=== PATIENT | female | born 1960 | race Caucasian/White ===

== ENCOUNTER 2016-07-11 09:09 | Day surgery (SDC) | payer BC ==
[~2016-07-11] VITALS: Ht 167.6 cm; Wt 67.1 kg
[2016-07-11] VITALS (16 sets, daily range): BP systolic 117–139; BP diastolic 65–84; PULSE 56–88; RESP 15–19; Ht 167.6 cm; Wt 67.1 kg
[~2016-07-11 09:09] MED LIST: BUPIVACAINE 0.5% (SDV) 30 ML, morphine SULFATE (PF) 8 MG, EPINEPHrine 0.3 MG, KETOROLAC... IRR SCH; CEFAZOLIN 2 GM/50 ML (PMX) 50 ML IVPB ONE; DESFLURANE 15 MIN ONE; DEXAMETHASONE 1 MG TAB PO ONE; GABAPENTIN 300 MG CAP PO ONE; GLYCOPYRROLATE 0.4 MG INJ ONE; NEOSTIGMINE 3 MG/3 ML SYRINGE ONE; TRANEXAMIC ACID 1,000 MG in SOD CHLORIDE 0.9% 100 ML IVPB ONE; traMADol 50 MG TAB PO ONE
[2016-07-11] MEDS ORDERED: SYN1 PO (09:45)
[2016-07-11] MEDS ORDERED: LIOT5TAB3 PO (09:47)
[2016-07-11] MEDS ORDERED: METF1000 PO (09:48)
[2016-07-11] MEDS ORDERED: [UNRECOGNIZED DRUG - CODE] PO (09:48)
[2016-07-11] MEDS ORDERED: NAFT45CR TP (09:49)
[2016-07-11] MEDS ORDERED: SUMA50TA11 PO (09:50)
[2016-07-11] MEDS ORDERED: MULTI PO (09:51)
[2016-07-11] MEDS ORDERED: ASCO500C7 PO (09:51)
[2016-07-11] MEDS ORDERED: CALC600T11 PO (09:52)
[2016-07-11] MEDS ORDERED: ZINC220C5 PO (09:53)
[2016-07-11] MEDS ORDERED: VITA150T PO (09:53)
[2016-07-11] MEDS ORDERED: DICL50TA11 PO (09:54)
[2016-07-11] MEDS ORDERED: CA CHLORIDE 10% 10 ML SYRINGE ONE (11:59)
[2016-07-11] MEDS ORDERED: THROMBIN 5000 UNIT VIAL ONE (12:00)
[2016-07-11] MEDS ORDERED: LACTATED RINGER'S 1,000 ML IV* SCH (12:00)
[2016-07-11] MEDS ORDERED: POLYMYXIN/BACITRACIN 1L IRRIG ONE (12:00)
--- NOTE | 2016-07-11 12:00 | HPN ---
Date/Time of Note Date/Time of Note DATE: 07/11/16 TIME: 11:59 Interval H&P Admission Note Pt. seen H&P reviewed: No system changes VIK HANSON MD Jul 11, 2016 11:59
[2016-07-11] MEDS ORDERED: FENTAnyl 50 MCG/ML VIAL ONE (12:19)
[2016-07-11] MEDS ORDERED: DEXAMETHASONE 4 MG/ML 1 ML INJ ONE (12:47)
[2016-07-11] MEDS ORDERED: LIDOCAINE 2% (SDV) 5 ML INJ ONE (12:56)
[2016-07-11] MEDS ORDERED: ROCURONIUM 50 MG INJ ONE (12:56)
[2016-07-11] MEDS ORDERED: PROPOFOL 20 ML ONE (12:56)
[2016-07-11] MEDS ORDERED: CEFAZOLIN 1 GM INJ ONE (12:56)
[2016-07-11] MEDS ORDERED: SUCCINYLCHOLINE CHLORIDE 100 MG/5 ML SYG IV ONE (12:56)
[2016-07-11] MEDS ORDERED: HYDROmorphONE (0.2 MG/ML) 10ML SYG IV PRN ×3 (13:00)
[2016-07-11] MEDS ORDERED: FENTAnyl 50 MCG/ML VIAL IV PRN (13:00)
[2016-07-11] MEDS ORDERED: METOCLOPRAMIDE 10 MG INJ IV PRN (13:00)
[2016-07-11] MEDS ORDERED: MEPERIDINE 25 MG INJ IV PRN (13:00)
[2016-07-11] MEDS ORDERED: ONDANSETRON 4 MG INJ IV PRN (13:00)
[2016-07-11] MEDS ORDERED: DIPHENHYDRAMINE 50 MG INJ IV PRN (13:00)
--- NOTE | 2016-07-11 14:07 | PDOCDIS ---
Discharge Instructions DIAGNOSIS Discharge Diagnosis: Ischiofemoral impingement CONDITION Patient Condition: Good HOME CARE INSTRUCTIONS: Diet Instructions: Regular ACTIVITY: Activity Restrictions: Slowly Increase Activity Bathing Restrictions: Shower FOLLOW UP/APPOINTMENTS Appointments Friday, 07/15 SCHOOL/WORK RELEASE May return to School/Work with: With Restrictions School/Work Release Comment: Foot flat weight bearing for four weeks VIK HANSON MD Jul 11, 2016 14:07
--- NOTE | 2016-07-11 14:33 | OPR ---
DATE OF OPERATION: 07/11/2016 PREOPERATIVE DIAGNOSIS: Left ischiofemoral impingement. POSTOPERATIVE DIAGNOSES: 1. Left partial hamstring tear. 2. Left chronic ischial bursitis. 3. Left chronic sciatica nerve entrapment. PROCEDURE PERFORMED: 1. Left open hamstring tendon repair. 2. Left open ischial bursectomy. 3. Left open sciatic neurolysis. SURGEON: Vik Silverman MD SHEEP BONER: Mumtaz Schulz MD Continuous Miner Operator surgeon Mumtaz Schulz MD was asked to be present at my request as a result of the complexity associated with the procedure, including positioning of the extremity, manipulation and protection of the neural structures which are clearly within the surgical field. In my opinion, the assistance offered by a surgical instrument maker is insufficient, and Dr. Schulz should be compensated for his time. PROCEDURE IN DETAIL: Following administration of general endotracheal anesthesia, the patient was placed in the prone position and all prominences were padded properly. The posterior aspect of the left hip was then identified. The area was then locally infiltrated with long-acting anesthetic. Sterile prep and drape was then undertaken. A transverse incision was then made at the crease of the buttocks. The subgluteal space was then exposed with significant scarring noted. A very thick sheath was noted along the sciatic nerve. The sheath was then incised and a sciatic neurolysis was then undertaken from proximal to distal, clearly moving it from within the ischiofemoral space. Palpation of the area with rotation of the hip revealed the evident impingement which was occurring where this nerve was being trapped between the lesser trochanter, which was significantly prominent, and the ischial tuberosity. Once the neurolysis was completed. The nerve was thoroughly protected throughout the case. The attention was then directed to the palpable partial hamstring tendon tear. The ischium was then incised. The remaining fibrinous and degenerative tissue was then excised of the hamstring. A significant bursal fluid was seen to emanate from the area. A complete bursectomy of the ischium was then completed. There was very large and thickened bursal reactive tissue. Once the bursectomy was completed, osteotome was then used to remove approximately 4 to 5 mm of the lateral aspect of the ischium. Two 5.5 mm triple -loaded anchors were then inserted with sutures into the lateral ischium. The sutures were then used to pass through the hamstring tendon tear. The sutures were then tied in a sliding locking fashion and a watertight closure of the hamstring sheath was completed. The area of the lesser trochanter was then identified. The sciatic nerve was retracted in a more medial direction and the lesser trochanter was then identified. The posterior aspect of the lesser was noted and as mentioned was very markedly prominent. The psoas tendon was partially removed from around the bony prominence and using careful osteotomes and rongeurs, the majority of the prominent lesser trochanter was then removed and its portion of the psoas tendon was seen to be partially torn. A good decompression of the area was confirmed with digital palpation with hip rotation. The joint was thoroughly irrigated, closed using 0 Vicryl for the deep layer, 2- 0 and 4-0 Monocryl suture followed by a Prineo dressing for skin closure. Watertight closure was obtained. The patient was then placed in a supine position, extubated and transported to recovery in stable condition, tolerating the procedure well. I examined her in the recovery room and her neurological status was intact with normal motor and sensation of her sciatic nerve distrubution. Dictated By: VIK RODRIGUEZ/THIAGO Conf#: [id number] DID#: [id number] SACHIN
--- NOTE | 2016-07-12 18:47 | RADRPT ---
PROCEDURE: XR Chest. CLINICAL INDICATION: Chest pain, preop TECHNIQUE: Single frontal view of the chest was obtained COMPARISON: None FINDINGS: The heart and mediastinum are within normal limits. The lungs are clear. There is no pleural effusion or pneumothorax. IMPRESSION: No definite abnormalities are identified. RPTAT:AAJJ Scott Leon Physician Date Time Electronically viewed and signed by Scott Leon Physician on 07/11/2016 10:22 /
== END 2016-07-11 19:08 | disposition home or self-care (01) ==
LOC: SDS 09:09
PROVIDERS: ATTEND Orthopaedic Surgery
DX: M70.72 Other bursitis of hip, left hip (principal); M54.32 Sciatica, left side; S76.012D Strain of muscle, fascia and tendon of left hip, subsequent encounter; X58.XXXD Exposure to other specified factors, subsequent encounter
CPT/HCPCS: 27060; 27385; 64712; 71010; 86999; J0171; J0330; J0690; J0735; J1100; J1170; J1885; J2274; J2405; J2710; J3010; J3370

== ENCOUNTER 2016-11-21 08:44 | Observation (INO) | payer BC ==
[~2016-11-21] VITALS: Ht 165.1 cm; Wt 69.0 kg
[2016-11-21] VITALS (22 sets, daily range): BP systolic 101–145; BP diastolic 53–81; PULSE 62–80; RESP 10–72; Ht 165.1 cm; Wt 69.0 kg
[~2016-11-21 08:44] MED LIST changes: +ASCO500C7 PO; -BUPIVACAINE 0.5% (SDV) 30 ML, morphine SULFATE (PF) 8 MG, EPINEPHrine 0.3 MG, KETOROLAC... IRR SCH; +CALC600T11 PO; -CEFAZOLIN 2 GM/50 ML (PMX) 50 ML IVPB ONE; -DESFLURANE 15 MIN ONE; -DEXAMETHASONE 1 MG TAB PO ONE; +DICL50TA11 PO; -GABAPENTIN 300 MG CAP PO ONE; -GLYCOPYRROLATE 0.4 MG INJ ONE; +LIOT5TAB3 PO; +METF1000 PO; +MULTI PO; +NAFT45CR TP; -NEOSTIGMINE 3 MG/3 ML SYRINGE ONE; +SEVOFLURANE 15 MIN ONE; +SUMA50TA11 PO; +SYN1 PO; -TRANEXAMIC ACID 1,000 MG in SOD CHLORIDE 0.9% 100 ML IVPB ONE; +VITA150T PO; +ZINC220C5 PO; +[UNRECOGNIZED DRUG - CODE] PO; -traMADol 50 MG TAB PO ONE
--- NOTE | 2016-11-21 08:51 | HPN ---
Date/Time of Note Date/Time of Note DATE: 11/21/16 TIME: 08:51 Interval H&P Admission Note Pt. seen H&P reviewed: No system changes VIK HANSON MD Nov 21, 2016 08:51
[2016-11-21] MEDS ORDERED: LACTATED RINGER'S 1,000 ML IV* SCH (10:30)
[2016-11-21] MEDS ORDERED: TRANEXAMIC ACID 1,000 MG in SOD CHLORIDE 0.9% 100 ML IVPB SCH (11:00)
[2016-11-21] MEDS ORDERED: traMADol 50 MG TAB PO SCH (11:00)
[2016-11-21] MEDS ORDERED: DEXAMETHASONE 1 MG TAB PO SCH (11:00)
[2016-11-21] MEDS ORDERED: CEFAZOLIN 2 GM/50 ML (PMX) 50 ML IVPB SCH (11:00)
[2016-11-21] MEDS ORDERED: GABAPENTIN 300 MG CAP PO SCH ×2 (11:00→21:00)
[2016-11-21] MEDS ORDERED: SOD CHLORIDE 0.9% 100 ML, TRANEXAMIC ACID 3,000 MG IRR SCH ×2 (11:00)
[2016-11-21] MEDS ORDERED: BUPIVACAINE 0.5% (SDV) 30 ML, morphine SULFATE (PF) 8 MG, EPINEPHrine 0.3 MG, KETOROLAC... IRR SCH ×7 (11:00)
[2016-11-21] MEDS ORDERED: NEOSTIGMINE 3 MG/3 ML SYRINGE ONE (11:59)
[2016-11-21] MEDS ORDERED: MEPERIDINE 100 MG INJ ONE (11:59)
[2016-11-21] MEDS ORDERED: SUCCINYLCHOLINE CHLORIDE 100 MG/5 ML SYG IV ONE (11:59)
[2016-11-21] MEDS ORDERED: GLYCOPYRROLATE 0.4 MG INJ ONE (11:59)
[2016-11-21] MEDS ORDERED: PROPOFOL 20 ML ONE (11:59)
[2016-11-21] MEDS ORDERED: LIDOCAINE 2% (SDV) 5 ML INJ ONE (11:59)
[2016-11-21] MEDS ORDERED: ROCURONIUM 50 MG INJ ONE (11:59)
[2016-11-21] MEDS ORDERED: POLYMYXIN/BACITRACIN 1L IRRIG ONE (12:26)
[2016-11-21] MEDS ORDERED: ONDANSETRON 4 MG INJ ONE (12:46)
[2016-11-21] MEDS ORDERED: CEFAZOLIN 1 GM INJ ONE (12:46)
[2016-11-21] MEDS ORDERED: METOCLOPRAMIDE 10 MG INJ ONE (12:46)
[2016-11-21] MEDS ORDERED: MIDAZOLAM 1 MG/ML 2 ML INJ IV PRN (13:00)
[2016-11-21] MEDS ORDERED: EPHEDrine SULFATE 50 MG/5 ML SYG IV PRN (13:00)
[2016-11-21] MEDS ORDERED: HYDROmorphONE (0.2 MG/ML) 10ML SYG IV PRN ×3 (13:00)
[2016-11-21] MEDS ORDERED: METOCLOPRAMIDE 10 MG INJ IV PRN (13:00)
[2016-11-21] MEDS ORDERED: hydrALAzine 20 MG INJ IV PRN (13:00)
[2016-11-21] MEDS ORDERED: FENTAnyl 50 MCG/ML VIAL IV PRN ×3 (13:00)
[2016-11-21] MEDS ORDERED: MEPERIDINE 25 MG INJ IV PRN (13:00)
[2016-11-21] MEDS ORDERED: DIPHENHYDRAMINE 50 MG INJ IV PRN ×2 (13:00→13:30)
[2016-11-21] MEDS ORDERED: ONDANSETRON 4 MG INJ IV PRN ×2 (13:00→13:30)
[2016-11-21] MEDS ORDERED: OXYCODONE/ACETAMINOPHEN (5/325) TAB PO PRN ×4 (13:00→13:30)
[2016-11-21] MEDS ORDERED: LABETALOL HCL 20MG INJ IV PRN (13:00)
[2016-11-21] MEDS ORDERED: LACTATED RINGER'S 1,000 ML IV SCH (13:01)
--- NOTE | 2016-11-21 13:09 | OPR ---
Date/Time of Note Date/Time of Note DATE: 11/21/16 TIME: 13:06 Operative Report Procedure Date: Nov 21, 2016 Preoperative Diagnosis Left sciatic nerve entrapment Postoperative Diagnosis Left sciatic nerve entrapment Operation Performed Left open sciatic neural lysis Surgeon: VIK HANSON MD Lead Ramp Service Man: CONSTANTINO GARBER MD Anesthesia Type: general Estimated Blood Loss: 10 - 50 ml's Transfusion Required: no Specimen: none Grafts/Implants: none Complications: no Pt Condition Post Procedure: stable Disposition: PACU Procedure Description BIOLOGY SPECIALIST SURGEON: Constantino Garber MD was asked to be present at my request as a result of the complexity associated with this procedure including positioning of the extremity, positioning of the instrumentation and protection of the neurovascular structures. In my opinion, the assistance offered by a certified surgical technician is insufficient and Dr. Garber should be compensated for his time. PROCEDURE IN DETAIL: Following the administration of general endotracheal anesthesia supplemented with local anesthesia, the patient was placed in the prone position. All prominences were appropriately padded and protected. The posterior aspect of the left lower extremity was then prepped and draped in usual sterile fashion. The previously made incision was then opened once again. The subcutaneous tissues were elevated and the abductor musculature identified. This was retracted laterally. The posterior aspect was then palpated and the nerve was identified there was severe scar tissue around the nerve over the area of the prior neural lysis as well as the bony resection. The nerve was then carefully freed up with all the scar tissue being removed up to the sciatic notch and distally below the area of the prior dissection. The wound was then thoroughly irrigated. A good decompression of the nerve was confirmed and that the nerve was more dilated and had a good vascular supply around it. The wound was irrigated thoroughly. The wound was then closed in layers and a Prenio for the final cover. This was watertight. Estimated blood loss was procedure was [] cc. Postoperative radiographs will be obtained in the recovery room. VIK HANSON MD Nov 21, 2016 13:09
--- NOTE | 2016-11-21 13:10 | PDOCDIS ---
Discharge Instructions DIAGNOSIS Discharge Diagnosis Left sciatic nerve entrapment CONDITION Patient Condition: Good HOME CARE INSTRUCTIONS: Diet Instructions: Regular ACTIVITY: Activity Restrictions: Slowly Increase Activity Weight Bearing Bathing Restrictions: Shower FOLLOW UP/APPOINTMENTS Follow-up Plan 5 days SCHOOL/WORK RELEASE May return to School/Work with: With Restrictions School/Work Release Comment: Use crutches as necessary for the next 5-7 days VIK HANSON MD Nov 21, 2016 13:10
[2016-11-21] MEDS ORDERED: morphine 2 MG INJ IV PRN (13:30)
[2016-11-21] MEDS ORDERED: ACETAMINOPHEN 500 MG TAB PO PRN (13:30)
[2016-11-21] MEDS ORDERED: TRANEXAMIC ACID 1,000 MG in SOD CHLORIDE 0.9% 100 ML IV ONE (13:30)
[2016-11-21] MEDS ORDERED: KETOROLAC 15 MG INJ IV PRN (13:30)
[2016-11-21] MEDS ORDERED: SUMATRIPTAN 50 MG TAB PO PRN (13:30)
[2016-11-21] MEDS ORDERED: MAGNESIUM HYDROXIDE 30ML CUP PO PRN (13:30)
[2016-11-21] MEDS ORDERED: CEFAZOLIN 1 GM/50 ML (PMX) 50 ML IVPB SCH (13:30)
[2016-11-21] MEDS ORDERED: ZOLPIDEM 5 MG TAB PO PRN (13:30)
[2016-11-21] MEDS ORDERED: morphine 4 MG/ML VIAL IV PRN (13:30)
--- NOTE | 2016-11-21 14:57 | RADRPT ---
PROCEDURE: Pelvis radiographs CLINICAL INDICATION: S/p Total hip replacement. COMPARISON: None relevant listed. TECHNIQUE: Single frontal AP view of the pelvis was performed. FINDINGS: Two anchors project over the left inferior pubic ramus. Alignment is anatomic. No fracture or destructive bone lesion. Joint spaces are preserved. The sacroiliac joints are intact. No localized soft tissue swelling. Moderate facet arthropathy at L5-S1 bilaterally. IMPRESSION: Two anchors project over the left inferior pubic ramus. RPTAT: PP Physician Daniela Date Time Electronically viewed and signed by Physician Daniela on 11/21/2016 14:57 LG/
[2016-11-21] MEDS ORDERED: [UNRECOGNIZED DRUG - OTHER] XX SCH (15:30)
[2016-11-21] MEDS ORDERED: PHENTERMINE HCL XX SCH (15:30)
[2016-11-21] MEDS ORDERED: DEXAMETHASONE 2 MG TAB PO SCH (18:00)
[2016-11-21] MEDS ORDERED: LIOTHYRONINE 5 MCG TAB PO SCH (21:00)
[2016-11-21] MEDS ORDERED: SENNA/DOCUSATE NA (8.6MG/50MG) TAB PO SCH (21:00)
[2016-11-22] MEDS ORDERED: LEVOTHYROXINE 100 MCG TAB PO SCH (07:00)
[2016-11-22] MEDS ORDERED: metFORMIN 500 MG TAB PO SCH (08:00)
[2016-11-22] MEDS ORDERED: ASPIRIN 81 MG TAB PO SCH (09:00)
[2016-11-22] MEDS ORDERED: PHENTERMINE HCL PO SCH ×2 (09:00)
== END 2016-11-21 18:35 | disposition home or self-care (01) ==
LOC: INTOOBSV 08:44 → REC 08:44 → UNDODISIN 18:35
PROVIDERS: ADMIT Orthopaedic Surgery; ATTEND Orthopaedic Surgery
DX: G57.02 Lesion of sciatic nerve, left lower limb (principal); E78.5 Hyperlipidemia, unspecified; E11.9 Type 2 diabetes mellitus without complications; E03.9 Hypothyroidism, unspecified
CPT/HCPCS: 64712; 72170; 82962; 84703; 99217; J0171; J0690; J0735; J1885; J2175; J2274; J2405; J2710; J2765; J3370; J7999; G0378